=== PATIENT | female | born 1960 | race Caucasian/White ===

== ENCOUNTER 2020-07-28 09:48 | Outpatient (REF) | payer OTHER, SELFPAY ==
--- NOTE | ~2020-07-28 | MM_ITS ---
EXAMINATION: MM SCREENING DIGITAL BREAST TOMOSYNTHESIS, BILATERAL CLINICAL INFORMATION: Screening. Asymptomatic. The lifetime risk of breast cancer based on the Tyrer-Cuzick Model is 6%. COMPARISON: Mammography: 06/20/2019, 04/22/2018 TECHNIQUE: Digital breast tomosynthesis is performed in both the craniocaudal and mediolateral oblique views along with computer-aided detection (CAD). Synthesized 2D images are generated from the tomosynthesis. Additional right CC x2, right MLO, left CC, and left MLO views are provided. FINDINGS: The breasts are almost entirely fatty (ACR BI-RADS breast composition Category a). There are no significant masses, abnormal calcifications, or other abnormalities. Background stromal markings are stable. The axilla and skin contours are unremarkable. No significant changes. MM/MM tomosynthesis screening BI IMPRESSION: No mammographic evidence of malignancy. ASSESSMENT: BI-RADS 1: Negative RECOMMENDATION: Routine annual mammography screening. This patient's information was entered into a reminder system with a target due date for their next mammogram.
== END 2020-07-28 09:49 | disposition home or self-care (01) ==
LOC: HO.MAMMO 09:48
PROVIDERS: PCP Nurse Practitioner Family; Visit Provider Nurse Practitioner Family
DX: Z12.31 Encounter for screening mammogram for malignant neoplasm of breast (principal)
CPT/HCPCS: 77063; 77067

== ENCOUNTER 2021-07-30 08:29 | Outpatient (REF) | payer BC, SELFPAY ==
--- NOTE | ~2021-07-30 | MM_ITS ---
EXAMINATION: MM SCREENING DIGITAL BREAST TOMOSYNTHESIS, BILATERAL CLINICAL INFORMATION: Screening. Asymptomatic. The lifetime risk of breast cancer based on the Tyrer-Cuzick Model is 6%. COMPARISON: Mammography: 07/28/2020, 06/20/2019, 04/22/2018 TECHNIQUE: Digital breast tomosynthesis is performed in both the craniocaudal and mediolateral oblique views along with computer-aided detection (CAD). Synthesized 2D images are generated from the tomosynthesis. Additional bilateral CC and additional bilateral MLO views are provided. FINDINGS: The breasts are almost entirely fatty (ACR BI-RADS breast composition Category a). Stromal markings and scattered minor fibroglandular densities are similar to prior studies. There are no significant masses, abnormal calcifications, or other abnormalities. No significant changes from prior exams. MM/MM tomosynthesis screening BI IMPRESSION: No mammographic evidence of malignancy. ASSESSMENT: BI-RADS 1: Negative RECOMMENDATION: Routine annual mammography screening. This patient's information was entered into a reminder system with a target due date for their next mammogram.
== END 2021-07-30 08:30 | disposition home or self-care (01) ==
LOC: HO.MAMMO 08:29
PROVIDERS: PCP Nurse Practitioner Family; Visit Provider Nurse Practitioner Family
DX: Z12.31 Encounter for screening mammogram for malignant neoplasm of breast (principal)
CPT/HCPCS: 77063; 77067

== ENCOUNTER 2021-10-27 10:06 | Emergency (ER) | payer BC, SELFPAY ==
[2021-10-27 10:27] VITALS: BP 153/85; PULSE 72; RESP 17; TEMP 36.1; O2SAT 98; BMI 60.3
--- NOTE | 2021-10-27 19:02 | ED_ITS ---
HPI - Allergic Reaction General Chief complaint: General Medical Stated complaint: allergic reaction rash Time Seen by Provider: 10/27/21 12:30 Source: patient and family Mode of arrival: ambulatory Limitations: no limitations History of Present Illness HPI narrative: 61-year-old female who was recently diagnosed with candidiasis of the genitalia area and given Diflucan although no symptomatic relief than prescribed terconazole although reports she had an allergic reaction to that therefore she then went back to her primary care provider and they prescribed her prednisone and she started having hives all over her body. She reports that the hives and a rash to her genital area still are present. She denies any swelling of the face, trouble swallowing or breathing, nausea / vomiting, ever being allergic to prednisone or any other medications that she was aware of, thoughts of STDs, dysuria, hematuria, fevers or any other symptoms complaints or concerns at this time. MD complaint: allergic reaction Onset (ago): day(s) Exposure: medication ( See above) Symptoms: rash and itching Severity: moderate Treatment prior to arrival: none Previous Allergic Reaction History: none Related Data Previous Rx's Medication Instructions Recorded acetaminophen 300 mg-codeine 30 mg 1 tab PO Q8H PRN #14 tab 10/27/21 tablet cephalexin 500 mg capsule 500 mg PO Q6H 10 Days #40 cap 10/27/21 diphenhydramine HCl 25 mg tablet 50 mg PO TID PRN #10 tab 10/27/21 (Benadryl Allergy) doxycycline hyclate 100 mg tablet 100 mg PO BID 10 Days #20 tab 10/27/21 famotidine 20 mg tablet (Pepcid) 20 mg PO BID #14 tab 10/27/21 fluconazole 150 mg tablet 150 mg PO Q3D #2 tab 10/27/21 (Diflucan) nystatin 100,000 unit/gram topical 1 appl TOPICAL QID #30 g 10/27/21 ointment Allergies Allergy/AdvReac Type Severity Reaction Status Date / Time No Known Allergies Allergy Mild NKA Unverified 03/01/20 14:43 Review of Systems Review of Systems: Constitutional : No Fever, No Chills , no body aches, no recent illness Head/Face: No facial swelling, No facial redness ENT/Mouth : No oral/throat swelling, No Hoarseness, No Swallowing Difficulty Eyes: No Eye Pain, No Swelling, No Redness Cardiovascular : No Chest Pain, No SOB, No palpitations Respiratory : No Cough, No Sputum, No Wheezing, No Smoke Exposure, No Dyspnea Gastrointestinal : No Nausea, No Vomiting, No Diarrhea, No abdominal Pain Genitourinary : + rash genital area/ candidiasis per patient, No Dysuria, No Urinary Frequency, No Hematuria Musculoskeletal : No joint pain, No Myalgias, No Joint Swelling Skin : No Skin Lesions, + rash Neuro : No Weakness, No Numbness, No Headache, No dizziness, No tingling Psych : No Anxiety/Panic, No Depression Heme/Lymph: No Bruising, No Lymphadenopathy Endocrine : No Polyuria, No Polydipsia Denies changes in lotions or detergents. Denies new medications or any changes in medications. Denies drainage from rash. Denies any recent sick contacts or recent travel. Yes all other systems are reviewed and are negative [facility] Past Medical History Attestation statement: The following information was validated with the patient. Social History Social History Advance Directives: No Advance Directives Information Provided: No Physical Exam ED Vital Signs: Vital Signs - 24 hr 10/27/21 10:27 10/27/21 20:08 Temperature 97 F Pulse Rate 72 75 Respiratory Rate 17 18 Blood Pressure 153/85 H 139/66 Pulse Oximetry 98 96 BMI result Body Mass Index 60.3 vital signs have been reviewed as normal and appeared to be correct. Blood pressure normal. Heart rate normal. Respiration rate normal. Temperature normal. Oxygen saturation normal. Appearance: Alert. Oriented X3. No acute distress. Head: Normal external exam. Normocephalic. Atraumatic. Eyes: PERRLA. EOMI. Conjunctiva and sclera normal. Eyelids normal. ENT: Pharynx normal. Uvula midline. Moist mucous membranes. No lesions/ulcerations or masses noted on the tongue. Normal voice. No trismus noted. No drooling noted. No muffled voice noted. no angioedema noted. Neck: Normal inspection. Neck supple. FROM. No adenopathy. Thyroid Normal. No tracheal deviation noted. No crepitus is noted. No meningeal signs. No neck mass noted. No signs of trauma noted. CVS: Normal heart rate and rhythm. Heart sound normal. Pulses normal throughout. No murmurs/rales/gallops. Respiratory: No respiratory distress. Painless inspiration. Breath sounds normal. No wheezes/rales/rhonchi noted. Chest nontender. No crepitus is noted. No signs of trauma noted. No accessory muscle usage noted or decreased air movement noted. No signs of trauma. Abdomen: Soft and nontender. Bowel sounds normal in all 4 quadrants. No distention noted. No organomegaly noted. No visible injury noted. Back: No CVA tenderness. Full range of motion noted. Nontender. No signs of trauma. Patient neuro intact bilaterally and distally on all 4 extremities. Patient's reflexes intact bilaterally and distally on all 4 extremities. No rashes/lesion/induration/fluctuance or signs of infection noted. Skin: Skin warm and dry. Normal skin color. Normal skin turgor. erythematous satellite lesion to genital area consistent with candidiasis possibly superimposed with cellulitis. No streaking /induration / fluctuance or foreign bodies noted. Patient noted to have hives all over her arms / legs and abdomen consistent with allergic reaction. No Additional rashes/lesions/lacerations noted. Extremities: No lower extremity edema. No calf tenderness is noted. Extr emities exhibit normal range of motion and nontender. Neuro: Oriented X 3. No motor deficit. No sensory deficit. Reflexes normal. Normal steady gait. No focal neuro deficits noted. CN's II-XII intact bilaterally? Vascular: + radial pulses/+ 2 distal pedal pulses/+2 dorsalis pedis b/l. Normal cap refill. No cyanosis noted to upper extremity nails and lower extremity toes nails. Course Course Course Narrative: IMP/Plan: Allergic rxn And candidiasis infections to genital area possibly sup erimposed with cellulitis. Not anaphylaxis. Not sepsis/ infectious etiology. Patient well appearing in no acute distress, breathing easily without throat symptoms. Speaking full sentences, and handling secretions without difficulty. There is no obvious threat to airway. Lungs are CTA in all higgins. No signs of angioedema, stridor, airway compromise, anaphylaxis or anaphylactic shock. Not c/w SSSS/ TEN/ Eryth multiforme/ Weber Johnsons. at this time will DC home with antibiotics and antifungal for possible cellulitis/ candidiasis infection to the general area along with symptomatic treatment for possible allergic reaction she is possibly allergic to prednisone therefore will only give Benadryl and Pepcid along with instructions return if any new or worsening symptoms follow up with primary care provider. Patient understands agrees with this plan. MDM - Allergic Reaction Medical Records Attestation: I reviewed the patient's medical records. Discharge Plan Discharge Clinical Impression: Candidiasis of female genitalia, Cellulitis, Allergic reaction Patient Disposition: Home, Self-Care Instructions: Cellulitis (ED), General Allergic Reaction (ED), Skin Yeast Infection (ED) Prescriptions: New doxycycline hyclate 100 mg tablet 100 mg PO BID 10 Days Qty: 20 0RF cephalexin 500 mg capsule 500 mg PO Q6H 10 Days Qty: 40 0RF fluconazole [Diflucan] 150 mg tablet 150 mg PO Q3D Qty: 2 0RF diphenhydramine HCl [Benadryl Allergy] 25 mg tablet 50 mg PO TID PRN (Reason: itching) Qty: 10 0RF famotidine [Pepcid] 20 mg tablet 20 mg PO BID Qty: 14 0RF nystatin 100,000 unit/gram ointment 1 appl topical QID Qty: 30 2RF acetaminophen-codeine 300-30 mg tablet 1 tab PO Q8H PRN (Reason: pain) Qty: 14 0RF Referrals: Stacie Bolivar [employer] [Primary Care Provider] - 2 days Interventions: ED Discharge Assessment Last Done: 10/27/21 20:14 Discharge Date/Time: 10/27/21 20:19
[2021-10-27 20:08] VITALS: BP 139/66; PULSE 75; RESP 18; O2SAT 96
[2021-10-27] MEDS: diphenhydrAMINE HCL 25 MG TABLET 50 MG PO (20:09)
[2021-10-27] MEDS: Famotidine 20 MG TABLET PO (20:10)
[2021-10-27] MEDS: cephALEXin 500 MG CAPSULE PO (20:13)
[2021-10-27] MEDS: Fluconazole 150 MG TABLET PO (20:13)
== END 2021-10-27 20:19 | disposition home or self-care (01) ==
PROVIDERS: Emergency Provider Internal Medicine; PCP Nurse Practitioner Family
DX: L50.0 Allergic urticaria (principal); T38.0X5A Adverse effect of glucocorticoids and synthetic analogues, initial encounter; Y92.9 Unspecified place or not applicable; B37.49 Other urogenital candidiasis; N76.4 Abscess of vulva
CPT/HCPCS: 99283; Q0163

== ENCOUNTER 2022-04-30 15:44 | Emergency (ER) | payer BC, SELFPAY ==
--- NOTE | ~2022-04-30 | XR_ITS ---
EXAMINATION: XR CHEST CLINICAL INFORMATION: Shortness of breath COMPARISON: None TECHNIQUE: Frontal view of the chest was obtained. FINDINGS: The lungs are clear. No airspace consolidation, pleural effusion, or pneumothorax. The cardiomediastinal silhouette is within normal limits. No acute osseous injury. XR/XR chest 1V IMPRESSION: No acute pulmonary process.
[2022-04-30 16:26] VITALS: BP 158/91; PULSE 79; RESP 18; TEMP 36.8; O2SAT 96; BMI 58.8
--- NOTE | 2022-04-30 16:30 | ECG_ITS ---
Test Reason : DIFFICULTY BREATHING Blood Pressure : / mmHG Vent. Rate : 076 BPM Atrial Rate : 076 BPM P-R Int : 142 ms QRS Dur : 094 ms QT Int : 358 ms P-R-T Axes : 044 -15 011 degrees QTc Int : 402 ms Normal sinus rhythm Low voltage QRS Incomplete right bundle branch block Borderline ECG No previous ECGs available Referred By: Abel Phan Electronically Signed By:TYLER HOFFMAN MD
--- NOTE | 2022-04-30 16:33 | ED_ITS ---
HPI - SOB/Dyspnea General Chief Complaint: General Medical Stated Complaint: Difficulty breathing/ cough Time Seen by Provider: 04/30/22 17:42 Related Data Previous Rx's Medication Instructions Recorded acetaminophen 300 mg-codeine 30 mg 1 tab PO Q8H PRN pain #14 tabs 10/27/21 tablet cephalexin 500 mg capsule 500 mg PO Q6H 10 days #40 caps 10/27/21 diphenhydramine HCl 25 mg tablet 50 mg PO TID PRN itching #10 tabs 10/27/21 (Benadryl Allergy) doxycycline hyclate 100 mg tablet 100 mg PO BID 10 days #20 tabs 10/27/21 famotidine 20 mg tablet (Pepcid) 20 mg PO BID rash #14 tabs 10/27/21 fluconazole 150 mg tablet 150 mg PO Q3D 2 doses #2 tabs 10/27/21 (Diflucan) nystatin 100,000 unit/gram topical 1 appl topical QID to groin area 10/27/21 ointment #30 grams albuterol sulfate 2.5 mg/3 mL 2.5 mg (3 mL) inhalation Q6H #75 mL 04/30/22 (0.083 %) solution for nebulization albuterol sulfate 90 mcg/actuation 2 inh inhalation Q4-6H PRN 04/30/22 breath activated powder inhaler shortness of breath or wheezing #1 ea azithromycin 250 mg tablet See Rx Instructions PO .COMPLEX #6 04/30/22 tabs benzonatate 100 mg capsule 100 mg PO BID PRN cough #20 caps 04/30/22 ondansetron 4 mg disintegrating 4 mg PO Q6H PRN nausea and 04/30/22 tablet vomiting #14 tabs prednisone 20 mg tablet 40 mg PO DAILY 5 days #10 tabs 04/30/22 Allergies Allergy/AdvReac Type Severity Reaction Status Date / Time No Known Allergies Allergy Mild NKA Unverified 03/01/20 14:43 [facility] Social History Social History Advance Directives: No Advance Directives Information Provided: No Physical Exam Vital Signs: Vital Signs: Last Vital Signs Temp 100.0 F 04/30/22 19:19 Pulse 114 H 04/30/22 19:19 Resp 16 04/30/22 19:19 BP 142/76 H 04/30/22 19:19 Pulse Ox 98 04/30/22 19:19 O2 Del Method 04/30/22 19:19 BMI result Body Mass Index 58.8 Course Reevaluation(s) Reevaluation #1: 62-year-old female with history of COPD, pneumonia came in for shortness of breath for 4 days with productive cough with green sputum, patient had fever of 102 yesterday Afebrile in the ED. in triage vital signs stable, labs/ culture/lactic acid/ x-ray order from triage. Time: 16:34 Medications Administered Discontinued Medications Generic Name Dose Route Start Last Admin Trade Name Freq PRN Reason Stop Dose Admin Albuterol Sulfate 5 mg/ 7.5 mg 04/30/22 18:30 04/30/22 18:56 Albuterol Sulfate 2.5 mg INHALE 04/30/22 18:31 7.5 mg ONCE ONE Administration Albuterol/Ipratropium 3 ml 04/30/22 17:56 04/30/22 18:14 Albuterol/Iprat 2.5/0.5mg 3 Ml Ampul.Neb INHALE 04/30/22 17:57 3 ml ONCE ONE Administration Dexamethasone Sodium Phosphate 10 mg 04/30/22 18:30 04/30/22 19:26 Dexamethasone Sod Phosphate 10 Mg/Ml Vial IVPUSH 04/30/22 18:31 10 mg ONCE ONE Administration Magnesium Sulfate 2 gm in 50 mls @ 100 mls/hr 04/30/22 18:31 04/30/22 19:26 Magnesium Sulfate/H2o IV 04/30/22 19:00 100 mls/hr ONCE ONE Administration MDM - SOB/Dyspnea Lab Data Result diagrams: 04/30/22 17:02 04/30/22 17:02 Labs: Lab Results 04/30/22 04/30/22 04/30/22 Range/Units 16:54 17:01 17:01 WBC (4.8-10.8) X10*3/uL RBC (4.20-5.50) X10*6/uL Hgb (12.0-16.0) g/dl Hct (37.0-47.0) % MCV (80.0-98.0) fL MCH (27.0-33.0) pg MCHC (31.0-35.0) g/dl RDW (11.0-16.0) % Plt Count (160-400) X10*3/uL MPV (9.4-12.3) fL Immature Gran % (Auto) (0.0-0.4) % Neut % (Auto) (45-73) % Lymph % (Auto) (20-40) % [place] % (Auto) (2-11) % Eos % (Auto) (0-4) % Baso % (Auto) (0-2) % Lymph # (Auto) (1.2-4.9) X10*3/uL [place] # (Auto) (0.1-1.2) X10*3/uL Eos # (Auto) (0.0-0.4) X10*3/uL Baso # (Auto) (0.0-0.2) X10*3/uL Abs Immat Gran (auto) (0.00-0.03) X10*3/uL Absolute Neuts (auto) (2.0-8.3) x10*3/uL Absolute Nucleated RBC (0.0-0.012) X10*3/uL Nucleated RBC % (auto) (0.0-0.2) /100WBC Sodium (135-145) mmol/L Potassium (3.3-5.1) mmol/L Chloride (96-108) mmol/L Carbon Dioxide (22-29) mmol/L Anion Gap (12-20) BUN (9-16) mg/dL Creatinine (0.5-1.4) mg/dL Estim Creat Clear Calc Estimated GFR Random Glucose (60-115) mg/dL Lactic Acid (0.5-2.0) mmol/L Calcium (8.4-10.2) mg/dL Total Bilirubin (0.0-1.0) mg/dL Direct Bilirubin (0.0-0.5) mg/dL AST (5-31) U/L ALT (0-31) U/L Alkaline Phosphatase (39-117) U/L Troponin I High Sens < 3.5 (<3.5-17.0) ng/L B-Natriuretic Peptide 26 (<100) pg/mL Total Protein (6.5-8.0) g/dL Albumin (3.5-5.0) g/dL Lipase (8-78) U/L Influenza Type A (PCR) NEGATIVE (Negative) Influenza Type B (PCR) NEGATIVE (Negative) RSV RNA Qual (PCR) NEGATIVE (Negative) SARS-CoV-2 RNA (RT-PCR) NEGATIVE (Negative) 04/30/22 04/30/22 04/30/22 Range/Units 17:01 17:02 17:02 WBC 13.2 H (4.8-10.8) X10*3/uL RBC 4.30 (4.20-5.50) X10*6/uL Hgb 13.5 (12.0-16.0) g/dl Hct 40.1 (37.0-47.0) % MCV 93.3 (80.0-98.0) fL MCH 31.4 (27.0-33.0) pg MCHC 33.7 (31.0-35.0) g/dl RDW 13.1 (11.0-16.0) % Plt Count 216 (160-400) X10*3/uL MPV 10.1 (9.4-12.3) fL Immature Gran % (Auto) 0.6 H (0.0-0.4) % Neut % (Auto) 78.8 H (45-73) % Lymph % (Auto) 9.0 L (20-40) % [place] % (Auto) 10.6 (2-11) % Eos % (Auto) 0.6 (0-4) % Baso % (Auto) 0.4 (0-2) % Lymph # (Auto) 1.2 (1.2-4.9) X10*3/uL [place] # (Auto) 1.4 H (0.1-1.2) X10*3/uL Eos # (Auto) 0.1 (0.0-0.4) X10*3/uL Baso # (Auto) 0.1 (0.0-0.2) X10*3/uL Abs Immat Gran (auto) 0.08 H (0.00-0.03) X10*3/uL Absolute Neuts (auto) 10.4 H (2.0-8.3) x10*3/uL Absolute Nucleated RBC 0.000 (0.0-0.012) X10*3/uL Nucleated RBC % (auto) 0.0 (0.0-0.2) /100WBC Sodium 139 (135-145) mmol/L Potassium 4.0 (3.3-5.1) mmol/L Chloride 98 (96-108) mmol/L Carbon Dioxide 30 H (22-29) mmol/L Anion Gap 15 (12-20) BUN 14 (9-16) mg/dL Creatinine 0.87 (0.5-1.4) mg/dL Estim Creat Clear Calc 93.6 Estimated GFR > 60 Random Glucose 123 H (60-115) mg/dL Lactic Acid 1.5 (0.5-2.0) mmol/L Calcium 9.4 (8.4-10.2) mg/dL Total Bilirubin 0.8 (0.0-1.0) mg/dL Direct Bilirubin 0.5 (0.0-0.5) mg/dL AST 38 H (5-31) U/L ALT 58 H (0-31) U/L Alkaline Phosphatase 102 (39-117) U/L Troponin I High Sens (<3.5-17.0) ng/L B-Natriuretic Peptide (<100) pg/mL Total Protein 7.2 (6.5-8.0) g/dL Albumin 3.6 (3.5-5.0) g/dL Lipase 9 (8-78) U/L Influenza Type A (PCR) (Negative) Influenza Type B (PCR) (Negative) RSV RNA Qual (PCR) (Negative) SARS-CoV-2 RNA (RT-PCR) (Negative) Discharge Plan Discharge Clinical Impression: Upper respiratory infection, Asthma Patient Disposition: Home, Self-Care Instructions: Asthma (ED), Upper Respiratory Infection (ED), Wheezing (ED) Additional Instructions: Take your medications as prescribed. If you were prescribed antibiotics today, it is important that you take your medication to their entirety, do not skip any doses, do not finish them early. Follow-up with your primary care provider this week. Return to the emergency department with new or worsening symptoms. Such as fevers, chills, chest pain, shortness of breath, nausea, vomiting, dizziness, headache, vision changes, lethargy In case of emergency call 911 Prescriptions: New albuterol sulfate 2.5 mg /3 mL (0.083 %) solution for nebulization 2.5 mg inhalation Q6H Qty: 75 0RF albuterol sulfate 90 mcg/actuation aerosol powdr breath activated 2 inh inhalation Q4-6H PRN (Reason: shortness of breath or wheezing) Qty: 1 0RF azithromycin 250 mg tablet See Rx Instructions .ROUTE .COMPLEX Qty: 6 0RF Rx Instructions: For 250 mg dose pack: take 500 mg today (day 1), then 250 mg for 4 days (days 2-5) prednisone 20 mg tablet 40 mg PO DAILY 5 Days Qty: 10 0RF benzonatate 100 mg capsule 100 mg PO BID PRN (Reason: cough) Qty: 20 0RF ondansetron 4 mg tablet,disintegrating 4 mg PO Q6H PRN (Reason: nausea and vomiting) Qty: 14 0RF No Action doxycycline hyclate 100 mg tablet 100 mg PO BID 10 Days Qty: 20 0RF cephalexin 500 mg capsule 500 mg PO Q6H 10 Days Qty: 40 0RF fluconazole [Diflucan] 150 mg tablet 150 mg PO Q3D Qty: 2 0RF diphenhydramine HCl [Benadryl Allergy] 25 mg tablet 50 mg PO TID PRN (Reason: itching) Qty: 10 0RF famotidine [Pepcid] 20 mg tablet 20 mg PO BID Qty: 14 0RF nystatin 100,000 unit/gram ointment 1 appl topical QID Qty: 30 2RF acetaminophen-codeine 300-30 mg tablet 1 tab PO Q8H PRN (Reason: pain) Qty: 14 0RF Referrals: Stacie Bolivar NP [Primary Care Provider] - 2 days Stand Alone Forms: Work/School Release
[2022-04-30 17:09] LABS: MANUAL DIFF FLAG NO
[2022-04-30 17:11] LABS: Basophils Absolute Auto 0.1 X10*3/uL (0.0-0.2); Basophils Percent Auto 0.4 % (0-2); Eosinophils Absolute Auto 0.1 X10*3/uL (0.0-0.4); Eosinophils Percent Auto 0.6 % (0-4); Hematocrit 40.1 % (37.0-47.0); Hemoglobin 13.5 g/dl (12.0-16.0); Imm Gran Abs Auto 0.08 X10*3/uL (0.00-0.03); Imm Gran Pct Auto 0.6 % (0.0-0.4); Lymphocytes Absolute Auto 1.2 X10*3/uL (1.2-4.9); Mean Corpuscular HGB Conc 33.7 g/dl (31.0-35.0); Mean Corpuscular Hemoglobin 31.4 pg (27.0-33.0); Mean Corpuscular Volume 93.3 fL (80.0-98.0); Mean Platelet Volume 10.1 fL (9.4-12.3); Monocytes Absolute Auto 1.4 X10*3/uL (0.1-1.2); Monocytes Percent Auto 10.6 % (2-11); Neutrophils Absolute Auto 10.4 x10*3/uL (2.0-8.3); Neutrophils Percent Auto 78.8 % (45-73); Platelet Count 216 X10*3/uL (160-400); Red Cell Distribution Width 13.1 % (11.0-16.0); White Blood Count 13.2 X10*3/uL (4.8-10.8)
[2022-04-30 17:23] LABS: Lactic Acid 1.5 mmol/L (0.5-2.0)
[2022-04-30 17:30] LABS: Alanine Aminotransferase 58 U/L (0-31); Albumin Level 3.6 g/dL (3.5-5.0); Alkaline Phosphatase 102 U/L (39-117); Anion Gap 15 (12-20); Aspartate Amino Transferase 38 U/L (5-31); Bilirubin Direct 0.5 mg/dL (0.0-0.5); Bilirubin Total 0.8 mg/dL (0.0-1.0); Blood Urea Nitrogen 14 mg/dL (9-16); Calcium 9.4 mg/dL (8.4-10.2); Carbon Dioxide 30 mmol/L (22-29); Chloride 98 mmol/L (96-108); Creatinine Clr Calc Pharmacy 93.6; Estimated Glomerular Filt Rate > 60; Glucose Random 123 mg/dL (60-115); Lipase 9 U/L (8-78); Sodium 139 mmol/L (135-145); Total Protein 7.2 g/dL (6.5-8.0)
[2022-04-30 17:33] LABS: B Type Natriuretic Peptide 26 pg/mL (<100); Troponin-I High Sensitivity < 3.5 ng/L (<3.5-17.0)
[2022-04-30 17:51] LABS: Influenza A PCR NEGATIVE (Negative); Influenza B PCR NEGATIVE (Negative); Resp Syncy Virus RNA Qual PCR NEGATIVE (Negative); SARS COV2 PCR INHOUSE NEGATIVE (Negative)
--- NOTE | 2022-04-30 17:53 | ED.GENADULT ---
HPI - General Adult General Chief complaint: General Medical Stated complaint: Difficulty breathing/ cough Time Seen by Provider: 04/30/22 17:42 Source: patient Mode of arrival: ambulatory Limitations: no limitations History of Present Illness HPI narrative: 62 yo female ppmhx of asthma with 65 days of cough, shortness of breath, nausea, vomiting, heaache, diarrhea and fever. Patient sx began on Thursday, called her PCP who told her it was likely viral in origin and to wait several days to see if symptoms worsen. SOB has worsened prompting patient to come to the ED got worse after cleaning w/ heavy chemicals in garage. Currently only taking advair at home for asthma control, Recemt;y, lost her rescue inhaler. OTC medications include Sudafed, which has offered minimal relief. Tmax was 102.4 yesterday, did not take her temperature today. SOB worse with activity. Has taken 3 COVID home tests, all negative, with the most recent one being yesterday 04/29. No flu shot this year. Has received three COVID vaccines. Denies chest pain, dizziness, weakness, Related Data Previous Rx's Medication Instructions Recorded acetaminophen 300 mg-codeine 30 mg 1 tab PO Q8H PRN pain #14 tabs 10/27/21 tablet cephalexin 500 mg capsule 500 mg PO Q6H 10 days #40 caps 10/27/21 diphenhydramine HCl 25 mg tablet 50 mg PO TID PRN itching #10 tabs 10/27/21 (Benadryl Allergy) doxycycline hyclate 100 mg tablet 100 mg PO BID 10 days #20 tabs 10/27/21 famotidine 20 mg tablet (Pepcid) 20 mg PO BID rash #14 tabs 10/27/21 fluconazole 150 mg tablet 150 mg PO Q3D 2 doses #2 tabs 10/27/21 (Diflucan) nystatin 100,000 unit/gram topical 1 appl topical QID to groin area 10/27/21 ointment #30 grams albuterol sulfate 2.5 mg/3 mL 2.5 mg (3 mL) inhalation Q6H #75 mL 04/30/22 (0.083 %) solution for nebulization albuterol sulfate 90 mcg/actuation 2 inh inhalation Q4-6H PRN 04/30/22 breath activated powder inhaler shortness of breath or wheezing #1 ea azithromycin 250 mg tablet See Rx Instructions PO .COMPLEX #6 04/30/22 tabs benzonatate 100 mg capsule 100 mg PO BID PRN cough #20 caps 04/30/22 ondansetron 4 mg disintegrating 4 mg PO Q6H PRN nausea and 04/30/22 tablet vomiting #14 tabs prednisone 20 mg tablet 40 mg PO DAILY 5 days #10 tabs 04/30/22 Allergies Allergy/AdvReac Type Severity Reaction Status Date / Time No Known Allergies Allergy Mild NKA Unverified 03/01/20 14:43 Review of Systems Review of Systems: Constitutional : No Weight loss, No Fever, No Chills, No Fatigue, No Malaise ENT/Mouth : No sore throat, No Rhinorrhea Eyes: No Eye Pain, No Swelling, No Redness Cardiovascular : No Chest Pain, + SOB, + Dyspnea on Exertion, No Orthopnea, No Edema, No Palpitations Respiratory : No Cough, No Sputum, No Wheezing Gastrointestinal : No Nausea, No Vomiting, No Diarrhea, No Constipation, No abdominal Pain, No Hematochezia, No Melena Genitourinary : No Dysuria, No Urinary Frequency, No Hematuria, Musculoskeletal : No joint pain, No Myalgias, No Joint Swelling Skin : No Skin Lesions, No rash Neuro : No Weakness, No Numbness, No Dizziness, No Headache Psych : No Anxiety/Panic, No Depression All other systems reviewed and are negative Yes all other systems are reviewed and are negative COUNT INCLUDES THE [facility] Past Medical History Attestation statement: The following information was validated with the patient. Source: old records reviewed and nursing notes reviewed Social History Social History Advance Directives: No Advance Directives Information Provided: No Physical Exam ED Vital Signs: Vital Signs - 24 hr 04/30/22 16:26 04/30/22 18:15 04/30/22 18:58 Temperature 98.2 F Pulse Rate 79 76 76 Respiratory Rate 18 18 16 Blood Pressure 158/91 H Pulse Oximetry 96 Oxygen Delivery Method Room Air 04/30/22 19:19 Temperature 100.0 F Pulse Rate 114 H Respiratory Rate 16 Blood Pressure 142/76 H Pulse Oximetry 98 Oxygen Delivery Method Room Air BMI result Body Mass Index 58.8 vss Appearance: Alert.? Oriented X3.? No acute distress.? Head: Normocephalic, atraumatic, no step-offs or deformities Eyes: Pupils equal, round and reactive to light.? CVS: Normal heart rate and rhythm.? Pulses normal.? Respiratory: + mild/mod respiratory distress.? Breath sounds diminished in lower lobes b/l wheezing throught expiratory Abdomen: Soft and nontender.? Skin: Skin warm and dry.? Normal skin color.? Normal skin turgor.? Extremities: No lower extremity edema.? No calf ttp. 5/5 strength to bilateral upper and lower extremities Back: No midline tenderness, no C-spine tenderness, full range of motion, no CVA tenderness bilaterally Neuro: Oriented X 3.? No motor deficit.? No sensory deficit. CN 2-12 intact . Normal kebgia-me-kndi, aenr-ut-gkaz, steady tandem gait with normal coordination. Course Reevaluation(s) Reevaluation #1: Patient with slight leukocytosis, chemistry with no acute findings require intervention. Trop negative, EKG nonischemic unlikely ACS. Flu/COVID/RSV negative. X-ray with no acute findings. Pending [facility] of medications and re-evaluation. Time: 19:06 Reevaluation #2: Upon re-evaluation patient feeling much better sitting upright on the edge of the bed, reports improvement in symptoms, no longer wheezing, tells me she feels better and would like to go home on something for nausea, requesting refill on nebulizing treatments. Patient's oxygen saturation 98, initially patient was slightly tachycardic likely secondary to albuterol treatments. At this time patient will be discharged home advised to return with new or worsening symptoms educated worrisome signs and symptoms and when to return comfortable discharge home Time: 19:50 Medications Administered Discontinued Medications Generic Name Dose Route Start Last Admin Trade Name Freq PRN Reason Stop Dose Admin Albuterol Sulfate 5 mg/ 7.5 mg 04/30/22 18:30 04/30/22 18:56 Albuterol Sulfate 2.5 mg INHALE 04/30/22 18:31 7.5 mg ONCE ONE Administration Albuterol/Ipratropium 3 ml 04/30/22 17:56 04/30/22 18:14 Albuterol/Iprat 2.5/0.5mg 3 Ml Ampul.Neb INHALE 04/30/22 17:57 3 ml ONCE ONE Administration Dexamethasone Sodium Phosphate 10 mg 04/30/22 18:30 04/30/22 19:26 Dexamethasone Sod Phosphate 10 Mg/Ml Vial IVPUSH 04/30/22 18:31 10 mg ONCE ONE Administration Magnesium Sulfate 2 gm in 50 mls @ 100 mls/hr 04/30/22 18:31 04/30/22 19:26 Magnesium Sulfate/H2o IV 04/30/22 19:00 100 mls/hr ONCE ONE Administration Medical Decision Making MDM Narrative Medical decision making narrative: 1740 62 year old female presents w/ uri sx, and 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 PE- Diminished breathsounds w/ wheezing throught expiratory b/l to lower lobes and mild-mod respiratory distress on exam, w/ labored breathing. Speaking in short sentences. RRR. Abdomen soft nontender nondistended. Neuro nonfocal. Likely viral in origin bronchitis versus pneumonia in a or upper viral respiratory infection. I do not suspect pneumonia as bilateral lower lungs sound diminished will obtain chest x-ray to rule this out. Will also obtain BMP to rule out CHF. GRIMES likley typical neuro non focal I do not suspect stroke or posterior stroke unlikely this is PE Will obtain basic labs, imaging, urine, flu/COVID/RSV. Will also obtain BNP. Discuss this case with my attending who tells me no need for D-dimer at this time likely asthma in nature. Medical Records Medical records reviewed: Yes I reviewed the patient's medical records. Lab Data Lab results reviewed: Yes I reviewed the patient's lab results. Result diagrams: 04/30/22 17:02 04/30/22 17:02 Labs: Lab Results 04/30/22 04/30/22 04/30/22 Range/Units 16:54 17:01 17:01 WBC (4.8-10.8) X10*3/uL RBC (4.20-5.50) X10*6/uL Hgb (12.0-16.0) g/dl Hct (37.0-47.0) % MCV (80.0-98.0) fL MCH (27.0-33.0) pg MCHC (31.0-35.0) g/dl RDW (11.0-16.0) % Plt Count (160-400) X10*3/uL MPV (9.4-12.3) fL Immature Gran % (Auto) (0.0-0.4) % Neut % (Auto) (45-73) % Lymph % (Auto) (20-40) % Dawson % (Auto) (2-11) % Eos % (Auto) (0-4) % Baso % (Auto) (0-2) % Lymph # (Auto) (1.2-4.9) X10*3/uL Dawson # (Auto) (0.1-1.2) X10*3/uL Eos # (Auto) (0.0-0.4) X10*3/uL Baso # (Auto) (0.0-0.2) X10*3/uL Abs Immat Gran (auto) (0.00-0.03) X10*3/uL Absolute Neuts (auto) (2.0-8.3) x10*3/uL Absolute Nucleated RBC (0.0-0.012) X10*3/uL Nucleated RBC % (auto) (0.0-0.2) /100WBC Sodium (135-145) mmol/L Potassium (3.3-5.1) mmol/L Chloride (96-108) mmol/L Carbon Dioxide (22-29) mmol/L Anion Gap (12-20) BUN (9-16) mg/dL Creatinine (0.5-1.4) mg/dL Estim Creat Clear Calc Estimated GFR Random Glucose (60-115) mg/dL Lactic Acid (0.5-2.0) mmol/L Calcium (8.4-10.2) mg/dL Total Bilirubin (0.0-1.0) mg/dL Direct Bilirubin (0.0-0.5) mg/dL AST (5-31) U/L ALT (0-31) U/L Alkaline Phosphatase (39-117) U/L Troponin I High Sens < 3.5 (<3.5-17.0) ng/L B-Natriuretic Peptide 26 (<100) pg/mL Total Protein (6.5-8.0) g/dL Albumin (3.5-5.0) g/dL Lipase (8-78) U/L Influenza Type A (PCR) NEGATIVE (Negative) Influenza Type B (PCR) NEGATIVE (Negative) RSV RNA Qual (PCR) NEGATIVE (Negative) SARS-CoV-2 RNA (RT-PCR) NEGATIVE (Negative) 04/30/22 04/30/22 04/30/22 Range/Units 17:01 17:02 17:02 WBC 13.2 H (4.8-10.8) X10*3/uL RBC 4.30 (4.20-5.50) X10*6/uL Hgb 13.5 (12.0-16.0) g/dl Hct 40.1 (37.0-47.0) % MCV 93.3 (80.0-98.0) fL MCH 31.4 (27.0-33.0) pg MCHC 33.7 (31.0-35.0) g/dl RDW 13.1 (11.0-16.0) % Plt Count 216 (160-400) X10*3/uL MPV 10.1 (9.4-12.3) fL Immature Gran % (Auto) 0.6 H (0.0-0.4) % Neut % (Auto) 78.8 H (45-73) % Lymph % (Auto) 9.0 L (20-40) % Dawson % (Auto) 10.6 (2-11) % Eos % (Auto) 0.6 (0-4) % Baso % (Auto) 0.4 (0-2) % Lymph # (Auto) 1.2 (1.2-4.9) X10*3/uL Dawson # (Auto) 1.4 H (0.1-1.2) X10*3/uL Eos # (Auto) 0.1 (0.0-0.4) X10*3/uL Baso # (Auto) 0.1 (0.0-0.2) X10*3/uL Abs Immat Gran (auto) 0.08 H (0.00-0.03) X10*3/uL Absolute Neuts (auto) 10.4 H (2.0-8.3) x10*3/uL Absolute Nucleated RBC 0.000 (0.0-0.012) X10*3/uL Nucleated RBC % (auto) 0.0 (0.0-0.2) /100WBC Sodium 139 (135-145) mmol/L Potassium 4.0 (3.3-5.1) mmol/L Chloride 98 (96-108) mmol/L Carbon Dioxide 30 H (22-29) mmol/L Anion Gap 15 (12-20) BUN 14 (9-16) mg/dL Creatinine 0.87 (0.5-1.4) mg/dL Estim Creat Clear Calc 93.6 Estimated GFR > 60 Random Glucose 123 H (60-115) mg/dL Lactic Acid 1.5 (0.5-2.0) mmol/L Calcium 9.4 (8.4-10.2) mg/dL Total Bilirubin 0.8 (0.0-1.0) mg/dL Direct Bilirubin 0.5 (0.0-0.5) mg/dL AST 38 H (5-31) U/L ALT 58 H (0-31) U/L Alkaline Phosphatase 102 (39-117) U/L Troponin I High Sens (<3.5-17.0) ng/L B-Natriuretic Peptide (<100) pg/mL Total Protein 7.2 (6.5-8.0) g/dL Albumin 3.6 (3.5-5.0) g/dL Lipase 9 (8-78) U/L Influenza Type A (PCR) (Negative) Influenza Type B (PCR) (Negative) RSV RNA Qual (PCR) (Negative) SARS-CoV-2 RNA (RT-PCR) (Negative) ECG Data Attestation: I personally reviewed and interpreted this ECG as follows: Prior ECG tracings: not available for review Interpretation: Ventricular rate of 70 did come for normal, QRS normal, QT/QTC normal. EKG with normal sinus rhythm and incomplete right bundle-branch block. No previous EKGs to compare with. Critical Care Time Critical Care Time Critical Care Time: No Discharge Plan Discharge Clinical Impression: Upper respiratory infection, Asthma Patient Disposition: Home, Self-Care Additional Instructions: Take your medications as prescribed. If you were prescribed antibiotics today, it is important that you take your medication to their entirety, do not skip any doses, do not finish them early. Follow-up with your primary care provider this week. Return to the emergency department with new or worsening symptoms. Such as fevers, chills, chest pain, shortness of breath, nausea, vomiting, dizziness, headache, vision changes, lethargy In case of emergency call 911 Prescriptions: New albuterol sulfate 2.5 mg /3 mL (0.083 %) solution for nebulization 2.5 mg inhalation Q6H Qty: 75 0RF albuterol sulfate 90 mcg/actuation aerosol powdr breath activated 2 inh inhalation Q4-6H PRN (Reason: shortness of breath or wheezing) Qty: 1 0RF azithromycin 250 mg tablet See Rx Instructions .ROUTE .COMPLEX Qty: 6 0RF Rx Instructions: For 250 mg dose pack: take 500 mg today (day 1), then 250 mg for 4 days (days 2-5) prednisone 20 mg tablet 40 mg PO DAILY 5 Days Qty: 10 0RF benzonatate 100 mg capsule 100 mg PO BID PRN (Reason: cough) Qty: 20 0RF ondansetron 4 mg tablet,disintegrating 4 mg PO Q6H PRN (Reason: nausea and vomiting) Qty: 14 0RF No Action doxycycline hyclate 100 mg tablet 100 mg PO BID 10 Days Qty: 20 0RF cephalexin 500 mg capsule 500 mg PO Q6H 10 Days Qty: 40 0RF fluconazole [Diflucan] 150 mg tablet 150 mg PO Q3D Qty: 2 0RF diphenhydramine HCl [Benadryl Allergy] 25 mg tablet 50 mg PO TID PRN (Reason: itching) Qty: 10 0RF famotidine [Pepcid] 20 mg tablet 20 mg PO BID Qty: 14 0RF nystatin 100,000 unit/gram ointment 1 appl topical QID Qty: 30 2RF acetaminophen-codeine 300-30 mg tablet 1 tab PO Q8H PRN (Reason: pain) Qty: 14 0RF Referrals: Stacie Bolivar SHELTER CASE MANAGER [Primary Care Provider] - 2 days Stand Alone Forms: Work/School Release
[2022-04-30] MEDS: Albuterol/Iprat 2.5/0.5MG 3 ML AMPUL.NEB INHALE (18:14)
[2022-04-30 18:15] VITALS: PULSE 76; RESP 18; O2SAT 95
[2022-04-30] MEDS: Albuterol Sulfate 5 MG, Albuterol Sulfate (0.083%) 2.5 MG 7.5 MG INHALE (18:56)
[2022-04-30 18:58] VITALS: PULSE 76; RESP 16; O2SAT 96
[2022-04-30 19:19] VITALS: BP 142/76; PULSE 114; RESP 16; TEMP 37.8; O2SAT 98
--- NOTE | 2022-04-30 19:20 | PC.NURSE ---
PT 2000 ROUNDING DONE ,VITALS SIGN TAKEN ,PT AT BEDSIDE ,CALL SPICER WITHIN REACH .
[2022-04-30] MEDS: dexAMETHasone sod phosphate 10 MG/ML VIAL IVPUSH (19:26)
[2022-04-30] MEDS: Magnesium Sulfate/H2O 2 GM/50 ML PIGGYBACK IV (19:26)
[2022-04-30] MEDS: Acetaminophen 325 MG TABLET 650 MG PO (20:09)
== END 2022-04-30 20:17 | disposition home or self-care (01) ==
PROVIDERS: Emergency Medicine; Emergency Provider Internal Medicine; PCP Nurse Practitioner Family
DX: J06.9 Acute upper respiratory infection, unspecified (principal); J45.909 Unspecified asthma, uncomplicated; R00.0 Tachycardia, unspecified; R06.02 Shortness of breath; R50.9 Fever, unspecified; Z20.822 Contact with and (suspected) exposure to COVID-19
CPT/HCPCS: 0241U; 36415; 71045; 80048; 80076; 83605; 83690; 83880; 84484; 85025; 87040; 87077; 87186; 87205; 93005; 94640; 96365; 96375; 99284; J1100; J3475

== ENCOUNTER 2022-05-05 18:18 | Observation (INO) | payer BC, SELFPAY ==
--- NOTE | ~2022-05-05 | US_ITS ---
EXAMINATION: US ABDOMEN COMPLETE CLINICAL INFORMATION: Positive Escherichia coli blood cultures. COMPARISON: None TECHNIQUE: Real-time imaging of the abdominal viscera. Today's examination is mildly limited secondary to overlying bowel gas. FINDINGS: PANCREAS: Visualized portions of pancreas are normal in appearance. ABDOMINAL AORTA: The the proximal and mid segments are normal in caliber. The distal segment is obscured by overlying bowel gas and therefore not evaluated. INFERIOR VENA CAVA: Visualized portions are normal. LIVER: The liver is prominent in size. The liver contour is normal. Liver Echogenicity is increased diffusely. No focal hepatic lesion. There is no intrahepatic biliary duct dilatation seen. GALLBLADDER: Surgically absent. COMMON BILE DUCT: Normal in caliber measuring 0.4 cm in diameter. RIGHT KIDNEY: Normal. No hydronephrosis. No renal calculi or focal parenchymal lesions. The kidney measures 12.3 cm in maximum dimension. LEFT KIDNEY: The kidney measures 14 cm in maximum dimension. Relatively simple appearing 2.8 cm upper pole cyst. No renal calculi or hydronephrosis. SPLEEN: Normal. The spleen measures 11.2 cm in maximum dimension. FREE FLUID: None. US/US abdomen complete IMPRESSION: 1. Diffusely increased liver echogenicity. This is a nonspecific finding but most suggestive of hepatic steatosis. Correlation with liver enzymes recommended. 2. 2.8 cm left renal cyst.
[2022-05-05 18:22] VITALS: BP 144/112; PULSE 68; RESP 18; TEMP 36.6; O2SAT 96; BMI 54.8
--- NOTE | 2022-05-05 18:29 | ED.RECABL ---
HPI - Recheck/Abnormal Lab/Rx General Chief Complaint: Recheck/Abnormal Lab/Rx Stated Complaint: ?abnormal labs provider wanted her to come back Time Seen by Provider: 05/05/22 18:29 Source: patient Mode of arrival: ambulatory Limitations: no limitations History of Present Illness HPI narrative: 62 year old male presents to the ED with positive cultures for E coli. Patient was discharged from here for a COPD exacerbation. She states she was called and told to return due to positive blood cultures. Patient denies fever chills breathing is improved and she states she feels much better. complaint: other (positive blood culture) Related Data Home Medications Medication Instructions Recorded Confirmed albuterol sulfate 90 mcg/actuation 2 inh inhalation Q4-6H PRN 05/05/22 breath activated powder inhaler shortness of breath or wheezing gabapentin 100 mg capsule 2 - 4 cap PO BEDTIME 05/05/22 levothyroxine 137 mcg tablet 1 tab PO DAILY 05/05/22 Previous Rx's Medication Instructions Recorded acetaminophen 300 mg-codeine 30 mg 1 tab PO Q8H PRN pain #14 tabs 10/27/21 tablet cephalexin 500 mg capsule 500 mg PO Q6H 10 days #40 caps 10/27/21 diphenhydramine HCl 25 mg tablet 50 mg PO TID PRN itching #10 tabs 10/27/21 (Benadryl Allergy) famotidine 20 mg tablet (Pepcid) 20 mg PO BID rash #14 tabs 10/27/21 nystatin 100,000 unit/gram topical 1 appl topical QID to groin area 10/27/21 ointment #30 grams albuterol sulfate 2.5 mg/3 mL 2.5 mg (3 mL) inhalation Q6H #75 mL 04/30/22 (0.083 %) solution for nebulization azithromycin 250 mg tablet See Rx Instructions PO .COMPLEX #6 04/30/22 tabs benzonatate 100 mg capsule 100 mg PO BID PRN cough #20 caps 04/30/22 ondansetron 4 mg disintegrating 4 mg PO Q6H PRN nausea and 04/30/22 tablet vomiting #14 tabs prednisone 20 mg tablet 40 mg PO DAILY 5 days #10 tabs 04/30/22 Allergies Allergy/AdvReac Type Severity Reaction Status Date / Time No Known Allergies Allergy Mild NKA Unverified 03/01/20 14:43 Review of Systems Review of Systems: Review of systems: General: Patient denies any fever chills recent illness or falls Musculoskeletal: Denies back pain or body aches or other injuries HEENT: denies headache, runny nose, ear pain Respiratory: denies shortness of breath, cough Cardiovascular: no chest pain or palpitations : denies dysuria, frequency Abdomen: no nausea vomiting denies abdominal pain Extremities: no swelling, no pain Skin: no diaphoresis Yes all other systems are reviewed and are negative PMFSH Past Medical History Attestation statement: The following information was validated with the patient. Physical Exam Vital Signs: Vital Signs: Last Vital Signs Temp 97.8 F 05/05/22 18: Pulse 68 05/05/22 18:22 Resp 18 05/05/22 18:22 BP 144/112 H 05/05/22 18:22 Pulse Ox 96 05/05/22 18:22 O2 Del Method 05/05/22 18:22 BMI result Body Mass Index 54.8 General: Well-appearing well-nourished in no signs of distress HEENT: Normocephalic atraumatic Neck: No signs of JVD, no masses no tenderness or lymphadenopathy Cardiovascular: Regular rate and rhythm Respiratory: Clear to auscultation bilaterally Abdomen: Soft nontender no masses Extremities: Normal pedal pulses no signs of edema Skin: Dry warm no rashes Back: No tenderness full ROM MDM - Recheck/Abnormal Lab/Rx MDM Narrative Medical decision making narrative: Patient with a postive blood culture for E coli sensitive to rocephin. I will repeat the blood culture start on rocephin and admit to medicine. Discharge Plan Discharge Clinical Impression: Bacteremia Patient Disposition: Admitted As Inpatient Prescriptions: No Action doxycycline hyclate 100 mg tablet 100 mg PO BID 10 Days Qty: 20 0RF cephalexin 500 mg capsule 500 mg PO Q6H 10 Days Qty: 40 0RF fluconazole [Diflucan] 150 mg tablet 150 mg PO Q3D Qty: 2 0RF diphenhydramine HCl [Benadryl Allergy] 25 mg tablet 50 mg PO TID PRN (Reason: itching) Qty: 10 0RF famotidine [Pepcid] 20 mg tablet 20 mg PO BID Qty: 14 0RF nystatin 100,000 unit/gram ointment 1 appl topical QID Qty: 30 2RF acetaminophen-codeine 300-30 mg tablet 1 tab PO Q8H PRN (Reason: pain) Qty: 14 0RF albuterol sulfate 2.5 mg /3 mL (0.083 %) solution for nebulization 2.5 mg inhalation Q6H Qty: 75 0RF albuterol sulfate 90 mcg/actuation aerosol powdr breath activated 2 inh inhalation Q4-6H PRN (Reason: shortness of breath or wheezing) Qty: 1 0RF azithromycin 250 mg tablet See Rx Instructions .ROUTE .COMPLEX Qty: 6 0RF Rx Instructions: For 250 mg dose pack: take 500 mg today (day 1), then 250 mg for 4 days (days 2-5) prednisone 20 mg tablet 40 mg PO DAILY 5 Days Qty: 10 0RF benzonatate 100 mg capsule 100 mg PO BID PRN (Reason: cough) Qty: 20 0RF ondansetron 4 mg tablet,disintegrating 4 mg PO Q6H PRN (Reason: nausea and vomiting) Qty: 14 0RF
[2022-05-05 18:45] LABS: Basophils Percent Auto 0.1 % (0-2); Eosinophils Percent Auto 0.1 % (0-4); Hematocrit 41.5 % (37.0-47.0); Hemoglobin 13.8 g/dl (12.0-16.0); Imm Gran Abs Auto 0.24 X10*3/uL (0.00-0.03); Imm Gran Pct Auto 1.6 % (0.0-0.4); Lymphocytes Absolute Auto 1.1 X10*3/uL (1.2-4.9); Lymphocytes Percent Auto 6.9 % (20-40); MANUAL DIFF FLAG NO; Mean Corpuscular HGB Conc 33.3 g/dl (31.0-35.0); Mean Corpuscular Hemoglobin 30.9 pg (27.0-33.0); Mean Platelet Volume 9.7 fL (9.4-12.3); Monocytes Absolute Auto 0.6 X10*3/uL (0.1-1.2); Monocytes Percent Auto 4.2 % (2-11); Neutrophils Absolute Auto 13.3 x10*3/uL (2.0-8.3); Neutrophils Percent Auto 87.1 % (45-73); Platelet Count 390 X10*3/uL (160-400); Red Blood Count 4.46 X10*6/uL (4.20-5.50); Red Cell Distribution Width 13.1 % (11.0-16.0); White Blood Count 15.3 X10*3/uL (4.8-10.8)
[2022-05-05 19:00] LABS: COVID-19 Test Negative (Negative); IDNOW Serial# 16C4AD1C
[2022-05-05 20:00] VITALS: BP 154/71; PULSE 67; RESP 16; TEMP 36.7; O2SAT 98
--- NOTE | 2022-05-05 20:03 | PC.NURSE ---
Patient assigned to this RN's room at this time with outstanding fluid and antibiotic orders. Upon entry, patient has been taken to ultrasound. IV and antibiotics bedside and ready for initiation as soon as patient returns from ultrasound.
[2022-05-05 20:15] LABS: Alanine Aminotransferase 44 U/L (0-31); Albumin Level 3.5 g/dL (3.5-5.0); Alkaline Phosphatase 126 U/L (39-117); Anion Gap 18 (12-20); Aspartate Amino Transferase 15 U/L (5-31); Bilirubin Total 0.5 mg/dL (0.0-1.0); Blood Urea Nitrogen 23 mg/dL (9-16); Calcium 9.5 mg/dL (8.4-10.2); Carbon Dioxide 24 mmol/L (22-29); Chloride 100 mmol/L (96-108); Creatinine Clr Calc Pharmacy 83.6; Estimated Glomerular Filt Rate > 60; Glucose Random 304 mg/dL (60-115); Lipase 24 U/L (8-78); Potassium 5.1 mmol/L (3.3-5.1); Sodium 137 mmol/L (135-145)
[2022-05-05] MEDS: 0.9 % Sodium Chloride 1,000 ML 999 ML IV (20:32)
[2022-05-05] MEDS: cefTRIAXone sodium 1 GM in 0.9 % Sodium Chloride 50 ML IV (20:32)
[2022-05-05 20:33] LABS: Lactic Acid 2.7 mmol/L (0.5-2.0)
[2022-05-05 20:43] LABS: Reflex Lactate? Lactic Acid Added
[2022-05-05 20:52] LABS: Bilirubin Direct 0.2 mg/dL (0.0-0.5)
[2022-05-05 21:00] LABS: Total Protein 7.2 g/dL (6.5-8.0)
--- NOTE | 2022-05-05 21:04 | PC.NURSE ---
Patient is alert, oriented x4. She endorses a history of asthma and COPD (no home O2) and was recently discharged from [facility] [place] after an admission for COPD exacerbation (she just completed a course of PO antibiotics and prednisone). She received a call to come to ED due to positive blood cultures. Patient states she feels much better than when she was in the hospital before. She denies pain or discomfort anywhere. She endorses baseline SOB, but no new/worsening respiratory symptoms or cough. She does noted that in March she had an IUD removed (had it in for ~8 years for endometriosis) and isn't sure if maybe that is the source of infection. Vitals are stable. Patient provided with call florian and informed of its use.
--- NOTE | 2022-05-05 21:11 | PHA.MEDREC ---
Pharmacy Consult ? Medication Reconciliation Pharmacy has completed the medication reconciliation. Not adherent to advair. Started again only a few days ago ashly
--- NOTE | 2022-05-05 21:27 | P.HPHOSP_ITS ---
History of Present Illness Date of Service: 05/05/22 Chief Complaint: positive blood cultures 62-year-old female with past medical history, hypothyroidism, hypertension, presents the hospital after being called back for positive cultures. Patient presented to the hospital on 04/30 for asthma symptoms including shortness of breath wheezing and cough. Patient had cultures drawn at that time, given Keflex and prednisone which treatment of asthma exacerbation and sent home.. Patient reports that ever since she has been doing well, has had no fever, chills, no abdominal pain nausea vomiting, has had no urinary symptoms. She reports no dizziness, no chest pain, shortness of breath has significantly improved, she still has some cough but no wheezing. She reports that at the end of March she did have her IUD removed but has had no instrumentation or other new/acute intervention or manipulation On arrival to the ED patient hemodynamically stable no significant abnormal vitals Lab significant for WBC count of 15.3, lactic acid of 2.7 which resolved after IV fluids. UA does is positive for leukocyte Estrace and WBC. Abdominal ultrasound shows diffusely increased liver echogenicity nonspecific and most likely suggestive of hepatic steatosis. 2.8 cm left renal cyst Review of Systems Review of Systems: Yes all other systems are reviewed and are negative [facility] Medical History (Updated 05/06/22 @ 06:48 by Jase Quesada MD) Asthma Hypertension Hypothyroidism Social History Patient Tobacco Use Status: Never used Tobacco Advance Directives: No Advance Directives Information Provided: Yes Meds Allergies Allergy/AdvReac Type Severity Reaction Status Date / Time No Known Allergies Allergy Mild NKA Unverified 03/01/20 14:43 Active Medications: Current Medications Pharmacy Consult (Consult Rx Perform Med Rec) 1 each MISCELLANE ONCE PRN PRN Reason: Consult order Home Medications Medication Instructions Recorded Confirmed Last Taken Type albuterol sulfate 90 mcg/actuation 2 inh inhalation Q4H PRN shortness 05/05/22 05/05/22 05/05/22 History breath activated powder inhaler of breath or wheezing celecoxib 200 mg capsule 200 mg PO DAILY 05/05/22 05/05/22 05/05/22 History fluticasone 250 mcg-salmeterol 50 1 puff inhalation BID 05/05/22 05/05/22 05/05/22 History mcg/dose blistr powdr for inhalation (Advair Diskus) gabapentin 100 mg capsule 700 mg PO BEDTIME 05/05/22 05/05/22 05/04/22 History hydrochlorothiazide 12.5 mg capsule 1 cap PO DAILY 05/05/22 05/05/22 05/05/22 History levothyroxine 137 mcg tablet 1 tab PO DAILY 05/05/22 05/05/22 05/05/22 History Physical Exam Vital Signs and Narrative: Vital Signs: Last Vital Signs Temp 98.1 F 05/05/22 20:00 Pulse 67 05/05/22 20:00 Resp 16 05/05/22 20:00 BP 154/71 H 05/05/22 20:00 Pulse Ox 98 05/05/22 20:00 O2 Del Method 05/05/22 20:00 BMI result Body Mass Index 54.8 Const: General: cooperative and no acute distress Orientati on/consciousness: patient oriented x3 Eyes: General: appearance normal, both eyes and all related structures Resp: Effort & Inspection: normal respiratory effort Auscultation: clear to auscultation bilaterally Cardio: Rate: regular rate Rhythm: regular rhythm GI: Palpation (GI): Soft to palpation Auscultation: normal bowel sounds Skin: General skin exam: no rashes or lesions noted Neuro: General: patient oriented x3 Cognition (Neuro): normal cognition Extrem: General: Yes normal to inspection and Yes no pedal edema Results Labs CBC and Chem 7: 05/05/22 18:39 05/05/22 18:39 Labs: Laboratory Results - last 24 hr 05/05/22 05/05/22 05/05/22 18:39 18:39 18:39 MCV 93.0 MCH 30.9 MCHC 33.3 RDW 13.1 Plt Count 390 D MPV 9.7 Immature Gran % (Auto) 1.6 H Neut % (Auto) 87.1 H Lymph % (Auto) 6.9 L [place] % (Auto) 4.2 Eos % (Auto) 0.1 Baso % (Auto) 0.1 Lymph # (Auto) 1.1 L [place] # (Auto) 0.6 Eos # (Auto) 0.0 Baso # (Auto) 0.0 Abs Immat Gran (auto) 0.24 H Absolute Neuts (auto) 13.3 H Absolute Nucleated RBC 0.000 Nucleated RBC % (auto) 0.0 Anion Gap 18 Estim Creat Clear Calc 83.6 Estimated GFR > 60 Random Glucose 304 H Lactic Acid 2.7 H* Calcium 9.5 Total Bilirubin 0.5 Direct Bilirubin 0.2 AST 15 D ALT 44 H Alkaline Phosphatase 126 H D Total Protein 7.2 Albumin 3.5 Lipase 24 COVID-19 ([facility]LLA) COVID-19 Clin Com 05/05/22 18:39 MCV MCH MCHC RDW Plt Count MPV Immature Gran % (Auto) Neut % (Auto) Lymph % (Auto) [place] % (Auto) Eos % (Auto) Baso % (Auto) Lymph # (Auto) [place] # (Auto) Eos # (Auto) Baso # (Auto) Abs Immat Gran (auto) Absolute Neuts (auto) Absolute Nucleated RBC Nucleated RBC % (auto) Anion Gap Estim Creat Clear Calc Estimated GFR Random Glucose Lactic Acid Calcium Total Bilirubin Direct Bilirubin AST ALT Alkaline Phosphatase Total Protein Albumin Lipase COVID-19 (ANGELLA) Negative COVID-19 Clin Com See Note Imaging Radiologist's Impressions: Impressions Abdomen Ultrasound 05/05/22 20:13 IMPRESSION: 1. Diffusely increased liver echogenicity. This is a nonspecific finding but most suggestive of hepatic steatosis. Correlation with liver enzymes recommended. 2. 2.8 cm left renal cyst. Assessment and Plan (1) Bacteremia: Status: Acute (2) Leukocytosis: Status: Acute (3) UTI (urinary tract infection): Status: Acute Plan 62-year-old female with past medical history of asthma presents to the hospital for positive blood cultures. # bacteremia - likely source UTI, patient had growing E coli sensitive to ceftriaxone as well as Keflex - patient asymptomatic at this time - no evidence of sepsis or obstruction on abdominal CT - will treat with 1 dose of ceftriaxone, likely discharge in a.m. # UTI - asymptomatic - but given bacteremia, patient will be treated with ceftriaxone - follow new cultures # leukocytosis - likely secondary to prednisone - no evidence of sepsis - follow CBC # hypertension - stable - continue antihypertensive # asthma - significantly improved - continue cough medication, DuoNeb p.r.n. # hypothyroidism - continue levothyroxine DVT prophylaxis: Early ambulation Quality Stroke Does the patient have a stroke diagnosis?: No VTE Prior VTE?: No VTE Risk Level:: Medical - low VTE Device Contraindication: Treatment Not Indicated VTE Drug Contraindication: Treatment Not Indicated
[2022-05-05 22:11] LABS: ~Lactic Acid-LAB USE ONLY 1.4 mmol/L (0.5-2.0)
[2022-05-05 22:13] VITALS: BP 185/84; PULSE 67; RESP 19; TEMP 36.4; O2SAT 99
[2022-05-05] MEDS: 0.9 % Sodium Chloride Flush 3 ML SYRINGE IVFLUSH (22:46)
--- NOTE | 2022-05-05 22:47 | MHC.CM.PN ---
Addendum entered by Fide Garcias 05/05/22 22:55: Pfizer x2/booster. Original Note: MANUELA 05/05. CM met with patient assigned to OBS with bed assignment pending. A&Ox4. Employed. Lives with /HCP Rory Patel ([phone]). HCP not on file. Copy requested. Pt uses no DME/services. Drives. D/C plan: Home without services. will transport.
[2022-05-06] VITALS: BP 143/74; PULSE 63; RESP 18; TEMP 36.5; O2SAT 96
[2022-05-06 01:31] LABS: Appearance Urine Clear; Color Urine Yellow; Glucose Urine UA Negative (Negative); Leukocyte Esterase Urine Trace (Negative); Nitrite Urine Negative (Negative); PH 6.5 (5.0-9.0); Specific Gravity - Urine 1.015 (1.005-1.025); UMIC TRIGGER UACC YES; Urine Blood Small (1+) (Negative); Urine Ketones Negative (Negative); Urine Protein Negative (Neg-Trace)
[2022-05-06 01:36] LABS: Bacteria Urine None Seen (None Seen); Hyaline Casts Urine 0-2 /LPF (0-2); Squamous Epithelial Cell Urine 0-2 /HPF (0-2); UACC Culture Trigger YES
[2022-05-06 04:00] VITALS: BP 135/77; PULSE 66; RESP 18; TEMP 36.2; O2SAT 96
[2022-05-06] MEDS: Gabapentin 300 MG CAPSULE PO (04:19)
[2022-05-06] MEDS: Gabapentin 400 MG CAPSULE PO (04:19)
[2022-05-06] MEDS: Levothyroxine Sodium 112 MCG TABLET PO (04:22)
[2022-05-06] MEDS: Levothyroxine Sodium 25 MCG TABLET PO (04:22)
[2022-05-06 06:55] LABS: MANUAL DIFF FLAG NO
[2022-05-06 06:59] LABS: Basophils Percent Auto 0.2 % (0-2); Eosinophils Absolute Auto 0.1 X10*3/uL (0.0-0.4); Eosinophils Percent Auto 0.9 % (0-4); Hematocrit 39.8 % (37.0-47.0); Hemoglobin 12.8 g/dl (12.0-16.0); Imm Gran Abs Auto 0.27 X10*3/uL (0.00-0.03); Imm Gran Pct Auto 1.8 % (0.0-0.4); Lymphocytes Absolute Auto 1.8 X10*3/uL (1.2-4.9); Lymphocytes Percent Auto 12.4 % (20-40); Mean Corpuscular HGB Conc 32.2 g/dl (31.0-35.0); Mean Corpuscular Hemoglobin 30.5 pg (27.0-33.0); Mean Platelet Volume 9.7 fL (9.4-12.3); Monocytes Absolute Auto 1.2 X10*3/uL (0.1-1.2); Monocytes Percent Auto 8.1 % (2-11); Neutrophils Absolute Auto 11.2 x10*3/uL (2.0-8.3); Neutrophils Percent Auto 76.6 % (45-73); Platelet Count 374 X10*3/uL (160-400); Red Blood Count 4.19 X10*6/uL (4.20-5.50); Red Cell Distribution Width 13.2 % (11.0-16.0); White Blood Count 14.6 X10*3/uL (4.8-10.8)
[2022-05-06 07:34] LABS: Anion Gap 12 (12-20); Blood Urea Nitrogen 20 mg/dL (9-16); Calcium 8.9 mg/dL (8.4-10.2); Carbon Dioxide 29 mmol/L (22-29); Chloride 102 mmol/L (96-108); Creatinine Clr Calc Pharmacy 102.3; Estimated Glomerular Filt Rate > 60; Glucose Random 140 mg/dL (60-115); Potassium 4.8 mmol/L (3.3-5.1); Sodium 138 mmol/L (135-145)
[2022-05-06 07:45] VITALS: BP 128/71; PULSE 69; RESP 18; TEMP 36.6; O2SAT 98
[2022-05-06] MEDS: hydroCHLOROthiazide 12.5 MG TABLET PO (08:21)
[2022-05-06] MEDS: Celecoxib 200 MG CAPSULE PO (08:21)
[2022-05-06] MEDS: 0.9 % Sodium Chloride Flush 3 ML SYRINGE IVFLUSH (08:22)
--- NOTE | 2022-05-06 09:52 | PM.DS ---
DS: Providers Provider Date of Service: 05/06/22 Date of admission: 05/05/22 21:25 Primary care physician: Stacie Bolivar NP Consults: 05/06/22 09:16 Consult to Infectious Diseases Routine Consulting Provider: Archana Turner Reason for consultation: ecoli bacteremia Has provider been notified: No Attending physician on discharge: Jorge A Baez Discharging clinician: Margaret Landrum DS: Diagnosis Discharge Diagnosis (1) Bacteremia: Status: Acute (2) Leukocytosis: Status: Acute (3) UTI (urinary tract infection): Status: Acute DS: Summary Hospital Course Hospital Course: HP as per admitting provider 62-year-old female with past medical history, hypothyroidism, hypertension, presents the hospital after being called back for positive cultures.? Patient presented to the hospital on 04/30 for asthma symptoms including shortness of breath wheezing and cough.? Patient had cultures drawn at that time, given Keflex and prednisone which treatment of asthma exacerbation and sent home..? Patient reports that ever since she has been doing well, has had no fever, chills, no abdominal pain nausea vomiting, has had no urinary symptoms.? She reports no dizziness, no chest pain, shortness of breath has significantly improved, she still has some cough but no wheezing.? She reports that at the end of March she did have her IUD removed but has had no instrumentation or other new/acute intervention or manipulation On arrival to the ED patient hemodynamically stable no significant abnormal vitals Lab significant for WBC count of 15.3, lactic acid of 2.7 which resolved after IV fluids.? UA does is positive for leukocyte Estrace and WBC. Abdominal ultrasound shows diffusely increased liver echogenicity nonspecific and most likely suggestive of hepatic steatosis.? 2.8 cm left renal cyst . # bacteremia secondary to urinary tract infection - likely source UTI, patient had growing E coli sensitive to ceftriaxone as well as Keflex - patient asymptomatic at this time - no evidence of sepsis or obstruction on abdominal us - Ceftin 500 mg twice a day for 14 days # leukocytosis - likely secondary to prednisone - no evidence of sepsis # hypertension - stable - continue antihypertensive # asthma - significantly improved - continue medications # hypothyroidism - continue levothyroxine Time Spent with Patient Time attestation: Total time spent providing and/or coordinating discharge services: Discharge coordination time: Greater than 30 minutes Quality: Safe Use of Opioids Does Pt have an Active Cancer Diagnosis on the Problem List?: No Quality: Stroke Does the patient have a stroke diagnosis?: No Physical Exam Vital Signs: Vital Signs: Last Vital Signs Temp 97.9 F 05/06/22 07:45 Pulse 69 05/06/22 07:45 Resp 18 05/06/22 07:45 BP 128/71 05/06/22 07:45 Pulse Ox 98 05/06/22 07:45 O2 Del Method 05/06/22 07:45 BMI result Body Mass Index 54.8 Appearing in no acute distress head is normocephalic atraumatic eyes pupils are PERRLA sclera is anicteric mouth throat mucous membranes are intact and moist neck is supple no lymphadenopathy, no JVD noted lung sounds are clear to auscultation heart regular rate rhythm, clear S1, S2 positive bowel sounds, abdomen is soft, nontender neuro patient is alert x3, no focal deficits DS: Data Data Completed and Pending Labs on day of discharge: Laboratory Results - last 24 hr 05/05/22 05/05/22 05/05/22 18:39 18:39 18:39 WBC 15.3 H RBC 4.46 Hgb 13.8 Hct 41.5 MCV 93.0 MCH 30.9 MCHC 33.3 RDW 13.1 Plt Count 390 D MPV 9.7 Immature Gran % (Auto) 1.6 H Neut % (Auto) 87.1 H Lymph % (Auto) 6.9 L [place] % (Auto) 4.2 Eos % (Auto) 0.1 Baso % (Auto) 0.1 Lymph # (Auto) 1.1 L [place] # (Auto) 0.6 Eos # (Auto) 0.0 Baso # (Auto) 0.0 Abs Immat Gran (auto) 0.24 H Absolute Neuts (auto) 13.3 H Absolute Nucleated RBC 0.000 Nucleated RBC % (auto) 0.0 Sodium 137 Potassium 5.1 D Chloride 100 Carbon Dioxide 24 Anion Gap 18 BUN 23 H D Creatinine 0.93 Estim Creat Clear Calc 83.6 Estimated GFR > 60 Random Glucose 304 H Lactic Acid 2.7 H* Lactic Acid F/U @ 2Hr Calcium 9.5 Total Bilirubin 0.5 Direct Bilirubin 0.2 AST 15 D ALT 44 H Alkaline Phosphatase 126 H D Total Protein 7.2 Albumin 3.5 Lipase 24 Urine Color Urine Appearance Urine pH Ur Specific [place] Urine Protein Urine Glucose (UA) Urine Ketones Urine Blood Urine Nitrite Ur Leukocyte Esterase Urine RBC Urine WBC Ur Squamous Epith Cells Urine Bacteria Hyaline Casts COVID-19 ([facility]A) COVID-19 Clin Com 05/05/22 05/05/22 05/06/22 18:39 21:50 01:15 WBC RBC Hgb Hct MCV MCH MCHC RDW Plt Count MPV Immature Gran % (Auto) Neut % (Auto) Lymph % (Auto) [place] % (Auto) Eos % (Auto) Baso % (Auto) Lymph # (Auto) [place] # (Auto) Eos # (Auto) Baso # (Auto) Abs Immat Gran (auto) Absolute Neuts (auto) Absolute Nucleated RBC Nucleated RBC % (auto) Sodium Potassium Chloride Carbon Dioxide Anion Gap BUN Creatinine Estim Creat Clear Calc Estimated GFR Random Glucose Lactic Acid Lactic Acid F/U @ 2Hr 1.4 Calcium Total Bilirubin Direct Bilirubin AST ALT Alkaline Phosphatase Total Protein Albumin Lipase Urine Color Yellow Urine Appearance Clear Urine pH 6.5 Ur Specific [place] 1.015 Urine Protein Negative Urine Glucose (UA) Negative Urine Ketones Negative Urine Blood Small (1+) H Urine Nitrite Negative Ur Leukocyte Esterase Trace H Urine RBC 6-10 H Urine WBC 6-10 H Ur Squamous Epith Cells 0-2 Urine Bacteria None Seen Hyaline Casts 0-2 COVID-19 (ANGELLA) Negative COVID-19 Clin Com See Note 05/06/22 05/06/22 06:02 06:02 WBC 14.6 H RBC 4.19 L Hgb 12.8 Hct 39.8 MCV 95.0 MCH 30.5 MCHC 32.2 RDW 13.2 Plt Count 374 MPV 9.7 Immature Gran % (Auto) 1.8 H Neut % (Auto) 76.6 H Lymph % (Auto) 12.4 L [place] % (Auto) 8.1 Eos % (Auto) 0.9 Baso % (Auto) 0.2 Lymph # (Auto) 1.8 [place] # (Auto) 1.2 Eos # (Auto) 0.1 Baso # (Auto) 0.0 Abs Immat Gran (auto) 0.27 H Absolute Neuts (auto) 11.2 H Absolute Nucleated RBC 0.000 Nucleated RBC % (auto) 0.0 Sodium 138 Potassium 4.8 Chloride 102 Carbon Dioxide 29 Anion Gap 12 BUN 20 H Creatinine 0.76 Estim Creat Clear Calc 102.3 Estimated GFR > 60 Random Glucose 140 H Lactic Acid Lactic Acid F/U @ 2Hr Calcium 8.9 D Total Bilirubin Direct Bilirubin AST ALT Alkaline Phosphatase Total Protein Albumin Lipase Urine Color Urine Appearance Urine pH Ur Specific [place] Urine Protein Urine Glucose (UA) Urine Ketones Urine Blood Urine Nitrite Ur Leukocyte Esterase Urine RBC Urine WBC Ur Squamous Epith Cells Urine Bacteria Hyaline Casts COVID-19 ([facility]LLA) COVID-19 Clin Com Discharge Plan Discharge Anticipated Discharge Date/Time: 05/06/22 09:47 Patient Disposition: Home, Self-Care Discharge Diagnosis: Ecoli bacteremia Referrals: Stacie Bolivar NP [Primary Care Provider] - 1 Week Discharge Medications: New cefuroxime axetil 500 mg tablet 500 mg PO BID Qty: 28 0RF Continued levothyroxine 137 mcg tablet 1 tab PO DAILY gabapentin 100 mg capsule 700 mg PO BEDTIME Rx Instructions: 300 MG PLUS 4 (100) MG CAPSULES albuterol sulfate 90 mcg/actuation aerosol powdr breath activated 2 inh inhalation Q4H PRN (Reason: shortness of breath or wheezing) fluticasone propion-salmeterol [Advair Diskus] 250-50 mcg/dose blister with device 1 puff inhalation BID celecoxib 200 mg capsule 200 mg PO DAILY hydrochlorothiazide 12.5 mg capsule 1 cap PO DAILY albuterol sulfate 2.5 mg /3 mL (0.083 %) solution for nebulization 2.5 mg inhalation Q6H Qty: 75 0RF Discharge Orders: Discharge Order (Routine); Ordered 05/06/22 Ordered By: Margaret Landrum Diet: Advance to usual diet Activity on Discharge: As tolerated Stand Alone Forms: Patient Portal Discharge page Care Plan Goals: Complete course of antibiotics Health Concerns: Ecoli bacteremia Plan of Treatment: Take all medications as prescribed follow up with your primary care provider as needed Assessment: See discharge summary
[2022-05-06] MEDS: Albuterol/Iprat 2.5/0.5MG 3 ML AMPUL.NEB INHALE (10:27)
[2022-05-06 10:31] VITALS: PULSE 89; RESP 18; O2SAT 98
== END 2022-05-06 11:37 | disposition home or self-care (01) ==
LOC: HO.ED 19:54 → HO.EDOVER 21:30 → HO.S3 21:45
PROVIDERS: Admitting Provider Internal Medicine; Emergency Provider Student in an Organized Health Care Education/Training Program; PCP Nurse Practitioner Family; Visit Provider Nurse Practitioner Acute Care
DX: R78.81 Bacteremia (principal); B96.20 Unspecified Escherichia coli [E. coli] as the cause of diseases classified elsewhere; D72.829 Elevated white blood cell count, unspecified; N39.0 Urinary tract infection, site not specified; N28.1 Cyst of kidney, acquired; Z20.822 Contact with and (suspected) exposure to COVID-19; I10 Essential (primary) hypertension; J45.909 Unspecified asthma, uncomplicated; E03.9 Hypothyroidism, unspecified; Z79.899 Other long term (current) drug therapy; Z23 Encounter for immunization
CPT/HCPCS: 36415; 76700; 80048; 80076; 81001; 83605; 83690; 85025; 87040; 87086; 87635; 90471; 90686; 96361; 96365; 99218; 99285; J0696

== ENCOUNTER 2022-08-08 07:19 | Outpatient (REF) | payer BC, SELFPAY ==
--- NOTE | ~2022-08-08 | MM_ITS ---
EXAMINATION: MM SCREENING DIGITAL BREAST TOMOSYNTHESIS, BILATERAL CLINICAL INFORMATION: Screening. Asymptomatic. The lifetime risk of breast cancer based on the Tyrer-Cuzick Model is 8%. COMPARISON: Mammography: 07/30/2021, 07/28/2020, 06/20/2019 TECHNIQUE: Digital breast tomosynthesis is performed in both the craniocaudal and mediolateral oblique views along with computer-aided detection (CAD). Synthesized 2D images are generated from the tomosynthesis. Additional views are obtained: Right CC x2, left CC x2, right MLO. FINDINGS: There are scattered areas of fibroglandular density (ACR BI-RADS breast composition Category b). There are no significant masses, abnormal calcifications, or other abnormalities. Parenchymal pattern is similar to prior studies. There is no developing density or architectural abnormality. The axilla and skin contours are unremarkable. No significant changes. MM/MM tomosynthesis screening BI IMPRESSION: No mammographic evidence of malignancy. ASSESSMENT: BI-RADS 1: Negative RECOMMENDATION: Routine annual mammography screening. This patient's information was entered into a reminder system with a target due date for their next mammogram.
== END 2022-08-08 07:20 | disposition home or self-care (01) ==
LOC: HO.MAMMO 07:19
PROVIDERS: Visit Provider Nurse Practitioner Family
DX: Z12.31 Encounter for screening mammogram for malignant neoplasm of breast (principal)
CPT/HCPCS: 77063; 77067

== ENCOUNTER 2023-08-13 07:56 | Outpatient (REF) | payer BC, SELFPAY ==
--- NOTE | ~2023-08-13 | MM_ITS ---
EXAMINATION: BONE DENSITOMETRY CLINICAL INDICATION: Postmenopausal. COMPARISON: This is the patient's baseline examination. TECHNIQUE: Using a [employer] DXA System (software version: 13.1) manufactured by [id number], dual-energy x-ray absorptiometry was performed of the lumbar spine and left hip. The images are of good technical quality. Summary results are attached. FINDINGS: LEFT FEMUR, NECK: BMD 1.138 g/cm2, Z-score 1.4, T-score 0.7, normal. LEFT FEMUR, TOTAL: BMD 1.174 g/cm2, Z-score 1.6, T-score 1.3, normal. AP SPINE L1-L3 (excluding L4): The data of L1-L4 has been changed to exclude the L4 vertebral body, because degenerative sclerosis at this level may cause overestimation of lumbar spine density. BMD 1.188 g/cm2, Z-score 0.4, T-score 0.1, normal. IDENTIFIED RISK FACTORS: Menopause, thiazide, anticonvulsants. HISTORY OF FRACTURE: None listed. MEDICATIONS: Vitamin D. MM/XR DEXA axial skeleton IMPRESSION: 1. DIAGNOSIS: Normal bone density based on the lowest T-score value of 0.1 in the lumbar spine applying World Health Organization criteria. 2. 10-YEAR FRACTURE RISK PREDICTION, FRAX: According to the guidelines, FRAX calculation should only be performed on patients in the osteopenia bone density category. Therefore, FRAX was not performed on this patient. 3. Treatment Recommendations: NOF guidelines recommend consideration for treatment in postmenopausal women and men age 50 and older presenting with the following: -A hip or vertebral (clinical or morphometric) fracture. -T-score less than or equal to -2.5 at the femoral neck or spine after appropriate evaluation to exclude secondary causes. -Low bone mass at the hip or spine and a 10-year fracture probability by FRAX of greater than or equal to 3% for hip fracture or greater than or equal to 20% for major osteoporotic fracture based on the [place] adapted WHO algorithm. 4. Other Recommendations: All treatment decisions require clinical judgment and consideration of individual patient factors, including patient preferences, comorbidities, previous drug use, risk factors not captured in the FRAX model (e.g. frailty, falls, vitamin D deficiency, increased bone turnover, interval significant decline in bone density) and possible under or overestimation of fracture risk by FRAX. FUTURE SCAN RECOMMENDATION: People with diagnosed cases of osteoporosis or at high risk for fracture should have regular bone mineral density tests. For patients eligible for Medicare, routine testing is allowed once every 2 years. The testing frequency can be increased to one year for patients who have rapidly progressing disease, those who are receiving or discontinuing medical therapy to restore bone mass, or have additional risk factors.
== END 2023-08-13 07:57 | disposition home or self-care (01) ==
LOC: HO.MAMMO 07:56
PROVIDERS: PCP Nurse Practitioner Family; Visit Provider Nurse Practitioner Family
DX: Z12.31 Encounter for screening mammogram for malignant neoplasm of breast (principal); Z13.820 Encounter for screening for osteoporosis; Z78.0 Asymptomatic menopausal state
CPT/HCPCS: 77063; 77067; 77080

== ENCOUNTER → 2023-08-13 08:30 | Outpatient (BNV) | payer BC, SELFPAY | PROVIDERS: PCP Nurse Practitioner Family; Visit Provider Radiology Diagnostic Radiology | DX: Z12.31 Encounter for screening mammogram for malignant neoplasm of breast (principal) | CPT/HCPCS: 77063; 77067 ==

== ENCOUNTER 2024-01-15 07:33 | Emergency (ER) | payer BC, SELFPAY ==
[2024-01-15 07:42] VITALS: BP 153/89; PULSE 72; RESP 16; TEMP 36.6; O2SAT 95; BMI 58.5
--- NOTE | 2024-01-15 07:58 | ED.GENADULT ---
HPI - General Adult General Chief complaint: Skin/Abscess/Foreign Body Stated complaint: eye issue Time Seen by Provider: 01/15/24 07:58 Source: patient Mode of arrival: ambulatory Limitations: no limitations History of Present Illness ED Provider: kathy JOHNSON narrative: Patient is a 63-year-old female presenting to the emergency department with complaint of rash to face around eyes, nose for the past week. States that symptoms began after she was outside gardening and have slightly improved but are still present. Reports new areas of rash to right inner elbow. Denies rash to any other areas. Has been using calamine lotion lower aspects of face. Denies any rash to palms, soles, inside of mouth. Denies any pain with eye movements. MD complaint: rash Onset (ago): week(s) Location: face Associated symptoms: denies other symptoms Treatments prior to arrival: other Related Data Home Medications ?Medication ?Instructions ?Recorded ?Confirmed albuterol sulfate 90 mcg/actuation 2 inh inhalation Q4H PRN shortness 05/05/22 05/05/22 breath activated powder inhaler of breath or wheezing celecoxib 200 mg capsule 200 mg PO DAILY 05/05/22 05/05/22 fluticasone 250 mcg-salmeterol 50 1 puff inhalation BID 05/05/22 05/05/22 mcg/dose blistr powdr for inhalation (Advair Diskus) gabapentin 100 mg capsule 700 mg PO BEDTIME 05/05/22 05/05/22 hydrochlorothiazide 12.5 mg capsule 1 cap PO DAILY 05/05/22 05/05/22 levothyroxine 137 mcg tablet 1 tab PO DAILY 05/05/22 05/05/22 Previous Rx's ?Medication ?Instructions ?Recorded albuterol sulfate 2.5 mg/3 mL 2.5 mg (3 mL) inhalation Q6H #75 mL 04/30/22 (0.083 %) solution for nebulization cefuroxime axetil 500 mg tablet 500 mg PO BID #28 tabs 05/06/22 prednisone 10 mg tablet See Rx Instructions .Route 01/15/24 .COMPLEX #21 tabs Allergies Allergy/AdvReac Type Severity Reaction Status Date / Time No Known Allergies Allergy Mild NKA Verified 01/15/24 07:44 Review of Systems Review of Systems: As per HPI. Yes all other systems are reviewed and are negative Constitutional: Constitutional: Reports as per [facility] Past Medical History Medical History (Updated 01/15/24 @ 08:15 by Meredith Bruno NP) Hypothyroidism Asthma Hypertension Social History Social History Patient Tobacco Use Status: Never used Tobacco Advance Directives: No Advance Directives Information Provided: Yes Physical Exam ED Vital Signs: Vital Signs - 24 hr 01/15/24 07:42 Temperature 97.8 F Pulse Rate 72 Respiratory Rate 16 Blood Pressure 153/89 H Pulse Oximetry 95 Oxygen Delivery Method Room Air BMI result Body Mass Index 58.5 Vital signs have been reviewed and appear to be correct. Blood pressure elevated. Heart rate normal. Respiratory rate normal. Temperature normal. Oxygen saturation normal. Const General: cooperative, healthy appearing and no acute distress Orientation/consciousness: oriented to person, oriented to place, oriented to time and patient oriented x3 Limitations: no limitations HENMT Head: Yes normocephalic and Yes atraumatic Ears: external ears normal General nose exam: Normal external nose present, Normal nasal mucous membranes and turbinates present and Normal septum present Face and sinus: Yes face symmetric, Yes erythema, Yes edema and Yes other (erythema and mild edema to bilat periorbital area, nasolabial folds) Mouth: Normal oral and palatal mucosa present, lip normal, tongue normal, oropharynx normal and moist mucous membranes Throat: Yes uvula midline and No uvular edema Eyes Pupils: Equal, round and reactive pupils present EOM: EOMs intact bilaterally (no pain with EOMs) Neck Neck: Yes normal visual inspection and Yes supple Resp Effort & Inspection: normal respiratory effort and able to speak in complete sentences Auscultation: clear to auscultation bilaterally Cardio Rate: regular rate Rhythm: regular rhythm Heart sounds: S1 normal heart sound present and S2 normal heart sound present GI Palpation (GI): Soft to palpation and nontender Auscultation: normoactive bowel sounds General: Yes no CVA tenderness Back/Spine/Pelvis Back: no CVA tenderness Skin General skin exam: elasticity normal and turgor normal Neuro General: oriented to person, oriented to place, oriented to time, patient oriented x3, moves all extremities, no focal motor deficits and CN's II-XI intact bilaterally Cranial nerves: Yes Equal, round and reactive pupils present Cognition (Neuro): normal cognition Extrem General: Yes full ROM, Yes no pedal edema and Yes no calf tenderness Psych Mental Status: mental status grossly normal Affect: normal affect Thought process: Normal thought process present Medical Decision Making Medical Decision Making [facility] Narrative: Patient is a 63-year-old female presenting to the emergency department with complaint of rash to face around eyes, nose for the past week. On exam patient is awake, A+Ox3, BP elevated, VS otherwise WNL, afebrile, normal neurological exam without focal deficits, physical exam findings as above. Given reported symptoms and physical exam findings, initial differential includes contact dermatitis. Do not suspect preseptal cellulitis, orbital cellulitis, herpes zoster. Will treat with tapering course of prednisone, advised daily antihistamine as well. Return precautions discussed at bedside. Patient verbalized understanding of and agreement with plan. Differential Diagnosis Differential Diagnoses: The differential diagnosis associated with the presentation includes As per [facility] External Record Review External record reviewed: Inpatient record, Office record and Outpatient record Prescription Management I considered prescription management with: Other Discharge Plan Discharge Clinical Impression: Contact dermatitis Patient Disposition: Home, Self-Care Instructions: Prednisone (By mouth), Contact Dermatitis (DC) Additional Instructions: You were evaluated in the emergency department today for a rash. Your evaluation did not reveal evidence of conditions requiring emergent medical treatment. You are being prescribed a tapering dose of a steroid called prednisone to decrease inflammation. We also recommend that you take a daily antihistamine such as loratadine (Claritin) or cetirizine (Zyrtec). Follow up with your primary care provider this week. If your symptoms do not improve, follow up with a home restoration service cleaner. Return to the emergency department if you develop increasing redness or swelling, pain with eye movements, difficulty breathing or shortness of breath, swelling to lips, tongue, fever, rash inside your mouth or to your palms/soles or any other concerning symptoms. Prescriptions: New prednisone 10 mg tablet See Rx Instructions .ROUTE .COMPLEX Qty: 21 0RF Rx Instructions: 60mg (6 tabs) x 1 day, then 50mg (5 tabs) x 1 day, then 40mg (4 tabs) x 1 day, then 30mg (3tabs) x 1 day, then 20mg (2 tabs) x 1 day, then 10mg (1 tab) x 1 day No Action levothyroxine 137 mcg tablet 1 tab PO DAILY gabapentin 100 mg capsule 700 mg PO BEDTIME Rx Instructions: 300 MG PLUS 4 (100) MG CAPSULES albuterol sulfate 90 mcg/actuation aerosol powdr breath activated 2 inh inhalation Q4H PRN (Reason: shortness of breath or wheezing) fluticasone propion-salmeterol [Advair Diskus] 250-50 mcg/dose blister with device 1 puff inhalation BID celecoxib 200 mg capsule 200 mg PO DAILY hydrochlorothiazide 12.5 mg capsule 1 cap PO DAILY cefuroxime axetil 500 mg tablet 500 mg PO BID Qty: 28 0RF albuterol sulfate 2.5 mg /3 mL (0.083 %) solution for nebulization 2.5 mg inhalation Q6H Qty: 75 0RF Referrals: [facility] [Provider Group] Print Language: Mongolian
[2024-01-15 08:29] VITALS: BP 153/89; PULSE 72; RESP 16; TEMP 36.6; O2SAT 95
== END 2024-01-15 08:30 | disposition home or self-care (01) ==
PROVIDERS: Emergency Provider Student in an Organized Health Care Education/Training Program; PCP Student in an Organized Health Care Education/Training Program
DX: L25.9 Unspecified contact dermatitis, unspecified cause (principal); R21 Rash and other nonspecific skin eruption; I10 Essential (primary) hypertension; J45.909 Unspecified asthma, uncomplicated
CPT/HCPCS: 99282; 99283

== ENCOUNTER 2024-11-30 13:27 | Outpatient (REF) | payer BC, SELFPAY ==
--- NOTE | ~2024-11-30 | MM_ITS ---
EXAMINATION: MM SCREENING DIGITAL BREAST TOMOSYNTHESIS, BILATERAL CLINICAL INFORMATION: Screening. Asymptomatic. COMPARISON: Mammography: Comparison is made with available priors TECHNIQUE: Digital breast mammography with tomosynthesis is performed in both the craniocaudal and mediolateral oblique views along with computer-aided detection (CAD). FINDINGS: There are scattered areas of fibroglandular density (ACR BI-RADS breast composition Category b). There are no significant masses, abnormal calcifications, or other abnormalities. MM/MM tomosynthesis screening BI IMPRESSION: No mammographic evidence of malignancy. ASSESSMENT: BI-RADS BI-RADS 1 - Negative RECOMMENDATION: Routine annual mammography screening. 1 year F/U This examination should not preclude the clinical evaluation of a suspicious palpable abnormality. This patient's information was entered into a reminder system with a target due date for their next mammogram. Electronically signed by: Shaneka Armendariz DO 12/05/2024 07:29 PM EDT
--- OUTSIDE RECORDS SUMMARY | 2024-11-30 15:24 | XMS_ITS | Patient Health Record ---
[facility] Address [address] [place] [address] Care Team Providers Care Care Navigator Name Role Phone Tori GARCIA, Desire Primary Care Provider Unavailab adonis Morelia Carbone Unavailable [phone] Allergies Allergen (clinical drug ingredient) Drug/Non Drug Allergy documented on EMR Reaction Allergy Type Onset Date Status adhesive tape Unknown Drug Allergy Act lavinia Reason For Referral No Information Medications Medication SIG (Take, Route, Frequency, Duration) Notes Start Date End Date Status Levothyroxine Sodium Active hydroCHLOROthiazide 12.5 MG Orally Once a day Active Fish Oil Active CeleBREX Active Multivitamin Active Problems Problem Type SNOMED Code ICD Code Onset Dates Problem Status W/U Status Risk Notes Problem Bursitis (75683808) Bursitis (727.3) Active confirmed Problem Achilles bursitis (710546187) Achilles Tendonitis Bursitis (726.71) Active confirmed Problem Calcaneal spur (19191606) Calcaneal spur (726.73) Active confirmed Problem Myositis (72521745) Myositis (729.1) Active confirmed Problem Pain in limb (10478851) Pain in Limb (729.5) Active confirmed Problem Plantar fasciitis (930375249) Plantar Fasciitis (728.71) Active confirmed Plan Of Treatment Pending Test Test Name Order Date [id number] TENDON SHEATH/LIGAMENT 0 01/05/2014,[id number] TENDON SHEATH/LIGAMENT 1 07/17/2013 Insurance Providers Payer Name Payer Address Payer Phone Subscriber Number Group Number Insured Name Patient Relationship to Insured Coverage Start Date Coverage End Date [facility] [place] [address] [facility], [place] [id number] Gerard Patel Self - patient is the insured Medical (General) History Medical History History ICD Code Chicken pox Gall bladder problems Thyroid disorder Surgical History Surgery Date(Month/Year) section 1983,1985 cholecystectomy 1984 fistula repair knee surgery 2013
== END 2024-11-30 13:28 | disposition home or self-care (01) ==
LOC: HO.MAMMO 13:27
PROVIDERS: PCP Student in an Organized Health Care Education/Training Program; Visit Provider Student in an Organized Health Care Education/Training Program
DX: Z12.31 Encounter for screening mammogram for malignant neoplasm of breast (principal)
CPT/HCPCS: 77063; 77067

== ENCOUNTER → 2024-11-30 14:00 | Outpatient (BNV) | payer BC, SELFPAY | PROVIDERS: PCP Student in an Organized Health Care Education/Training Program; Visit Provider Internal Medicine | DX: Z12.31 Encounter for screening mammogram for malignant neoplasm of breast (principal) | CPT/HCPCS: 77063; 77067 ==